=== PATIENT | male | born 1975 | race Caucasian/White ===

== ENCOUNTER 2016-12-16 16:19 | Emergency (ER) | payer MEDICAID ==
--- NOTE | 2016-12-16 16:22 | EDM.PDOC ---
<Solange Engel - Last Filed: 12/16/16 17:25> ED HPI GENERAL MEDICAL PROBLEM - General Chief Complaint: ENT Problem Stated Complaint: COLD Time Seen by Provider: 12/16/16 16:22 Source of Information: Reports: Patient History Limitations: Reports: No limitations - History of Present Illness INITIAL COMMENTS - FREE TEXT/NARRATIVE: Patient presents to the ER with c/o sore throat and pain in the chest. He states this began about 2 weeks ago. He admits to cough with sputum that began clear, progressed to green and then a brownish color. Patient states he has a hx of COPD. He states he began with a fever about 4 days ago that has come and gone since then, peaking at 104. Patient states he has been taking tylenol and ibuprofen for fever. Admits to body aches, headache, fatigue, chest pain and sob , diarrhea. Some nausea but no vomiting. Decreased appetite. 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: Acetaminophen, Other (see below) (cough drops) Chest Pain Score (Numeric/FACES): 8 - Related Data Allergies Allergy/AdvReac Type Severity Reaction Status Date / Time cephalexin [From Keflex] Allergy Swelling Verified 06/03/16 14:38 Penicillins Allergy Swelling Verified 11/09/14 21:43 Home Meds: Home Meds Lisinopril 10 mg PO DAILY 11/09/14 [History] Zolpidem Tartrate [Ambien] 5 mg PO DAILY 11/09/14 [History] Social & Family History - Tobacco Use Smoking Status *Q: Never Smoker Second Hand Smoke Exposure: No - Alcohol Use Days Per Week of Alcohol Use: 0 - Recreational Drug Use Recreational Drug Use: No ED ROS GENERAL - Review of Systems Review Of Systems: ROS reveals no pertinent complaints other than HPI. ED EXAM, GENERAL - Physical Exam Exam: See Below Exam Limited By: No limitations General Appearance: alert, WD/WN, no apparent distress Eye Exam: bilateral eye: normal inspection Ears: normal external exam, normal canal, hearing grossly normal Ear Exam: left ear: TM red, bilateral ear: TM bulging Nose: normal inspection, normal mucosa, no blood Throat/Mouth: Normal inspection, Normal lips, Normal teeth, Normal gums, Normal voice, No airway compromise, Other (Oropharynx erythematous) Head: atraumatic, normocephalic Neck: normal inspection, supple, full range of motion, lymphadenopathy (L), lymphadenopathy (R), other (tenderness on palpation) Respiratory/Chest: no respiratory distress, no accessory muscle use, other (LSC but diminished in the bases bilaterally) Cardiovascular: normal peripheral pulses, regular rate, rhythm, no edema, no gallop, no JVD, no murmur, no rub Peripheral Pulses: 2+: radial (L), radial (R) GI/Abdominal: normal bowel sounds, soft, non tender, no organomegaly, no distention, no abnormal bruit, no mass (Male) Exam: Deferred Rectal (Males) Exam: Deferred Back Exam: normal inspection, full range of motion, NT Extremities: normal inspection, normal range of motion, non-tender, normal capillary refill, no pedal edema Neurological: alert, oriented, CN II-XII intact, normal cognition, normal gait, normal reflexes, no motor/sensory deficits Psychiatric: normal affect, normal mood Skin Exam: Warm, Dry, Intact, Normal color, No rash Lymphatic: adenopathy: Course - Vital Signs Last Recorded V/S: Last Vital Signs Temp 37.3 C 12/16/16 16:29 Pulse 92 12/16/16 16:29 Resp 20 12/16/16 16:29 BP 129/86 12/16/16 16:29 Pulse Ox 98 12/16/16 16:29 - Orders/Labs/Meds Orders: Active Orders 24 hr Category Date Time Status CULTURE STREP A CONFIRMATION [RM] Stat Lab 12/16/16 16:48 Results STREP SCRN A RAPID W CULT CONF [RM] Stat Lab 12/16/16 16:48 Results Labs: Rapid Influenza A & B: Negative Rapid Strep Swab: negative - Radiology Interpretation Free Text/Narrative:: CXR: Mild Bronchitis. See Rad report. Departure - Departure Time of Disposition: 17:22 Disposition: Home, Self-Care 01 Condition: good Clinical Impression: Pneumonia Qualifiers: Pneumonia type: due to unspecified organism Laterality: left Lung location: lower lobe of lung Qualified Code(s): J18.1 - Lobar pneumonia, unspecified organism Instructions: Community-Acquired Pneumonia, Adult, [id number] Referrals: Aubrey Joe MD [Primary Care Provider] - Forms: ED Department Discharge Additional Instructions: Tessalon Perles 100m-2 caps orally every 8 hours as needed for cough. Zithromax 500m tablet orally daily for 7 days. Drink lots of fluids and rest. Follow up with primary care provider in the clinic next week. <Nav Leiva - Last Filed: 12/16/16 18:05> ED HPI GENERAL MEDICAL PROBLEM - General Source of Information: Reports: RN, RN notes reviewed Course - Re-Assessments/Exams Free Text/Narrative Re-Assessment/Exam: 12/16/16 17:19 FOR THIS ENCOUNTER THE PATIENT WAS SEEN IN CONJUNCTION WITH THE [facility] STUDENT SOLANGE ENGEL. ALL PATIENT CARE AND/OR PROCEDURE(S), DIAGNOSTIC ORDERS, MEDICATION(S) AND TREATMENT ORDERS, DISPOSITION ORDERS/PLANNING, AND DISCHARGE/FOLLOW UP INSTRUCTIONS WERE UNDER MY DIRECT SUPERVISION. pavel
[2016-12-16 16:30] VITALS: BP 129/86
--- NOTE | 2016-12-16 17:24 | CR ---
Clinical history: 41-year-old male cough and chest pain. Interpretation: Poor inspiratory effort exaggerating perihilar lung markings. Some peribronchial "cu ffing" but no air trapping, lung mass, hilar lymphadenopathy or focal lobar pneumonia. No atelectasis/collapse. No pneumothorax. Normal cardiac silhouette without alveolar edema or dependent effusion. CONCLUSION: Mild bronchitis.
== END 2016-12-16 17:46 | disposition home or self-care (01) ==
LOC: DL.ED 16:19
DX: J18.1 Lobar pneumonia, unspecified organism (principal); Z79.899 Other long term (current) drug therapy; Z88.0 Allergy status to penicillin; Z88.1 Allergy status to other antibiotic agents
CPT/HCPCS: 71020; 87081; 87430; 87804; 99283

== ENCOUNTER 2017-01-16 06:37 | Emergency (ER) | payer MEDICAID ==
[2017-01-16] MEDS ORDERED: Benzocaine 20% Oral Spray 59.2 ML Canister MUCMEM ONE (07:10)
[2017-01-16] MEDS ORDERED: Lidocaine 2% Viscous Solution 100 ML Bottle PO ONE (07:10)
[2017-01-16 07:13] VITALS: BP 161/106
--- NOTE | 2017-01-16 07:15 | EDM.PDOC ---
ED HPI ENT - General Chief Complaint: ENT Problem Stated Complaint: [id number] CRACKED TOOTH Time Seen by Provider: 01/16/17 07:10 Source of Information: Reports: Patient History Limitations: Reports: No limitations - History of Present Illness INITIAL COMMENTS - FREE TEXT/NARRATIVE: 42 yo white male c/o toothache X 2 months Symptom Onset Date: 11/18/16 Symptom Onset Time: 12:00 Timing/Duration: Reports: Week(s):, Gradual onset Severity: moderate Location: Reports: mouth (right side mandibular) Quality: Reports: Ache Worsens with: Reports: Cold therapy Associated Symptoms: Reports: no other symptoms - Related Data Allergies/ADRs: Allergies Allergy/AdvReac Type Severity Reaction Status Date / Time cephalexin [From Keflex] Allergy Swelling Verified 06/03/16 14:38 Penicillins Allergy Swelling Verified 11/09/14 21:43 Home Meds: Home Meds Lisinopril 10 mg PO DAILY 11/09/14 [History] Zolpidem Tartrate [Ambien] 10 mg PO DAILY 11/09/14 [History] Albuterol [IJD: Ventolin HFA] 2 puff INH ASDIRECTED PRN 01/16/17 [History] Donepezil HCl [Donepezil HCl] 10 mg PO DAILY 01/16/17 [History] Fluticasone/Salmeterol [Advair 250-50 Diskus] 1 puff INH BID 01/16/17 [History] Lurasidone HCl [Latuda] 80 mg PO DAILY 01/16/17 [History] Mirtazapine [Mirtazapine] 30 mg PO DAILY 01/16/17 [History] Omeprazole 20 mg PO DAILY PRN 01/16/17 [History] QUEtiapine [SEROquel] 100 mg PO DAILY 01/16/17 [History] SUMAtriptan Succinate [Imitrex] 100 mg PO ASDIRECTED PRN 01/16/17 [History] Past Medical History Cardiovascular History: Reports: Hypertension Respiratory History: Reports: COPD Gastrointestinal History: Reports: GERD Musculoskeletal History: Reports: Osteoarthritis Psychiatric History: Reports: Depression Social & Family History - Tobacco Use Smoking Status *Q: Never Smoker Second Hand Smoke Exposure: No - Caffeine Use Caffeine Use: Reports: Coffee, Energy drinks, Soda, Tea - Alcohol Use Days Per Week of Alcohol Use: 0 - Recreational Drug Use Recreational Drug Use: No ED ROS ENT - Review of Systems Review Of Systems: See Below Constitutional: Reports: no symptoms HEENT: Reports: Dental pain (rightmandible toothache) Respiratory: Reports: No Symptoms Cardiovascular: Reports: No symptoms Endocrine: Reports: no symptoms GI/Abdominal: Reports: No symptoms : Reports: no symptoms Musculoskeletal: Reports: no symptoms Skin: Reports: no symptoms Neurological: Reports: No Symptoms Psychiatric: Reports: No symptoms Hematologic/Lymphatic: Reports: no symptoms Immunologic: Reports: no symptoms ED EXAM, ENT - Physical Exam Exam: See Below Exam Limited By: No limitations General Appearance: alert, no apparent distress, obese Eye Exam: bilateral eye: EOMI Ears: normal external exam Nose: normal inspection Mouth/Throat: Dental pain (right mandible fractured tooth w/ caries), Dental tenderness Head: atraumatic Neck: normal inspection Respiratory/Chest: no respiratory distress, lungs clear Cardiovascular: normal peripheral pulses, regular rate, rhythm GI/Abdominal: normal bowel sounds Extremities: normal inspection Neurological: alert, oriented, CN II-XII intact Psychiatric: normal affect Skin: Warm, Dry, Intact Lymphatic: no adenopathy Course - Vital Signs Last Recorded V/S: Last Vital Signs Temp 36.2 C 01/16/17 06:50 Pulse 58 L 01/16/17 06:50 Resp 18 01/16/17 06:50 BP 161/106 H 01/16/17 06:50 Pulse Ox 99 01/16/17 06:50 - Orders/Labs/Meds Meds: Medications Discontinued Medications Generic Name Dose Route Start Last Admin Trade Name Freq PRN Reason Stop Dose Admin Benzocaine 5 ml 01/16/17 07:10 Hurricaine 20% [place] MUCMEM 01/16/17 07:11 ONETIME ONE Ketorolac Tromethamine 10 mg 01/16/17 07:17 Toradol PO 01/16/17 07:18 ONETIME ONE Lidocaine HCl 20 ml 01/16/17 07:10 Xylocaine 2% Viscous PO 01/16/17 07:11 ONETIME ONE Lidocaine HCl 10 ml 01/16/17 07:22 Xylocaine 2% Jelly MUCMEM 01/16/17 07:23 ONETIME ONE Departure - Departure Time of Disposition: 07:18 Disposition: Home, Self-Care 01 Condition: good Clinical Impression: Dental caries Fracture of tooth Qualifiers: Encounter type: initial encounter Fracture type: open Qualified Code(s): S02.5XXB - Fracture of tooth (traumatic), initial encounter for open fracture Forms: ED Department Discharge Additional Instructions: Use Tooth balls as directed Take Medication as prescribed only: Clindamycin 150mg QID # 40 Tramadol 50mg TID # 15 F/U w/ Dentist on TUESDAY January 17, 2017
[2017-01-16] MEDS ORDERED: Ketorolac 10 MG Tab PO ONE (07:17)
[2017-01-16] MEDS ORDERED: Lidocaine 2% Jelly 10 ML Urojet MUCMEM ONE (07:22)
== END 2017-01-16 07:58 | disposition home or self-care (01) ==
LOC: DL.ED 06:37
DX: S02.5XXB Fracture of tooth (traumatic), initial encounter for open fracture (principal); K02.9 Dental caries, unspecified; I10 Essential (primary) hypertension; J44.9 Chronic obstructive pulmonary disease, unspecified; K21.9 Gastro-esophageal reflux disease without esophagitis; M19.90 Unspecified osteoarthritis, unspecified site; F32.9 Major depressive disorder, single episode, unspecified; Z79.899 Other long term (current) drug therapy; Z88.0 Allergy status to penicillin; Z88.1 Allergy status to other antibiotic agents; X58.XXXA Exposure to other specified factors, initial encounter
CPT/HCPCS: 99282; A9270